=== PATIENT | female | born 1975 | race Caucasian/White ===

== ENCOUNTER 2016-10-06 14:48 | Emergency (ER) | payer OTHER ==
[2016-10-06 14:54] VITALS: BP 117/53; PULSE 96; TEMP 98; BMI 32.9
--- NOTE | 2016-10-06 15:39 | PDOC ---
History of Present Illness - General Chief Complaint: Sore Throat Stated Complaint: SORE THROAT Time Seen by Provider: 10/06/16 15:03 - History of Present Illness Initial Comments: 10/06/16 15:35 CHIEF COMPLAINT: sore throat, cough, sneezing, body aches HISTORY OF PRESENT ILLNESS: 41 yo F with no PMH presents to fast track with sore throat x 2 days, accompanied by cough, sneezing, body aches. Patient reports pain when swallowing and subjective fever. Denies chills, nausea, vomiting, diarrhea. No recent travel or sick contacts. PAST MEDICAL HISTORY: Denies past medical history FAMILY HISTORY: Denies SOCIAL HISTORY: Denies tobacco, alcohol, illicit drug use. SURGICAL HISTORY: left ankle surgery ALLERGIES: No known drug allergies REVIEW OF SYSTEMS General/Constitutional: Subjective fevr. Denies weakness, weight change. HEENT: Denies change in vision. Denies ear pain or discharge. Denies sore throat. Cardiovascular: Denies chest pain or shortness of breath. Respiratory: Denies cough, wheezing, or hemoptysis. Gastrointestinal: Denies nausea, vomiting, diarrhea or constipation. Denies rectal bleeding. Skin: Denies rash. PHYSICAL EXAM General Appearance: Well-appearing, appropriately dressed. No apparent distress. HEENT: Rhinorrhea, post nasal drip to oropharynx. EOMI, PERRLA, normal ENT inspection, normal voice. No conjunctival pallor. No photophobia, scleral icterus. Respiratory/Chest: Lungs CTAB. Cardiovascular: RRR. S1, S2. Musculoskeletal/Extremities: Normal inspection. FROM of all extremities, normal capillary refill. No tenderness to extremities, pedal edema, swelling, erythema or deformity. Integumentary: Appropriate color, dry, warm. 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 Fully oriented, alert. Appropriate mood/affect. Motor strength 5/5. No appreciable EOM palsy, facial droop or sensory deficit. Past History - Past Medical History Allergies/Adverse Reactions: Allergies Allergy/AdvReac Type Severity Reaction Status Date / Time No Known Allergies Allergy Verified 08/18/15 07:58 Home Medications: Ambulatory Orders Bupropion HCl [Wellbutrin Xl -] 150 mg PO DAILY tab.sr.24h 07/29/15 Enoxaparin [Lovenox -] 30 mg SQ BID disp.syrin 07/29/15 Alprazolam [Xanax] 0.25 mg PO PRN PRN 08/18/15 Cyclobenzaprine HCl [Flexeril -] 10 mg PO HS #3 tablet MDD 1 08/18/15 Oxycodone HCl/Acetaminophen [Percocet 5/325 -] 1 - 2 tab PO Q4H #20 tablet MDD unknown 08/18/15 Ibuprofen [Motrin -] 600 mg PO TID PRN #21 tablet 10/06/16 Loratadine [Claritin -] 10 mg PO DAILY #30 tablet 10/06/16 Anemia: No Asthma: No Cancer: No Cardiac Disorders: No CVA: No COPD: No CHF: No Dementia: No Diabetes: No GI Disorders: No Disorders: No HTN: No Hypercholesterolemia: No Liver Disease: No Seizures: No Thyroid Disease: No Other medical history: denies - Surgical History Abdominal Surgery: No Appendectomy: No Cardiac Surgery: No Cholecystectomy: No Lung Surgery: No Neurologic Surgery: No Orthopedic Surgery: 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 (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 LEFT 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 07/23/15) - Immunization History Immunization Up to Date: Yes - Psycho/Social/Smoking Cessation Hx Anxiety: No Suicidal Ideation: No Smoking Status: Yes Smoking History: Never smoked Have you smoked in the past 12 months: Yes Number of Cigarettes Smoked Daily: 5 If you are a former smoker, when did you quit?: 07/02 Information on smoking cessation initiated: No 'Breaking Loose' booklet given: 07/23/15 Hx Alcohol Use: No Drug/Substance Use Hx: No Substance Use Type: None Hx Substance Use Treatment: No *Physical Exam - Vital Signs Last Vital Signs Temp Pulse Resp BP Pulse Ox 98 F 96 H 18 117/53 97 10/06/16 14:53 10/06/16 14:53 10/06/16 14:53 10/06/16 14:53 10/06/16 14:53 Medical Decision Making - Medical Decision Making 10/06/16 15:38 41 yo F with no PMH presents to ED with URI symptoms and subjective fever, body aches. -Strep, flu swabs -strep,flu negative -Motrin 600 mg TID PRN Advised patient to take medications as prescribed and f/u with PMd if symptoms persist. Advised patient of signs and symptoms for return to ER; patient verbalized understanding and agrees to plan. 10/06/16 16:06 *DC/Admit/Observation/Transfer Diagnosis at time of Disposition: Common cold - Discharge Dispostion Disposition: HOME Condition at time of disposition: Stable Admit: No - Prescriptions Prescriptions: Loratadine [Claritin -] 10 mg PO DAILY #30 tablet Ibuprofen [Motrin -] 600 mg PO TID PRN #21 tablet PRN Reason: Fever Or Pain - Referrals Referrals: Sully Simpson [Primary Care Provider] - - Patient Instructions Printed Discharge Instructions: DI for Common Cold Additional Instructions: Please take medication as prescribed and f/u with your primary care doctor if symptoms persist past 3-5 days. If you experience any fever that does not go away with Motrin, nausea, vomiting, diarrhea, or any new or worsening symptoms, please return to the ER.
== END 2016-10-06 16:33 | disposition home or self-care (01) ==
LOC: JERFT 14:48
DX: J00 Acute nasopharyngitis [common cold] (principal)
CPT/HCPCS: 87070; 87430; 87804; 99281-25

== ENCOUNTER 2022-01-10 16:03 | Emergency (ER) | payer OTHER ==
[2022-01-10 16:39] VITALS: BP 115/81; PULSE 99; RESP 18; TEMP 98.1; BMI 36.6
== END 2022-01-10 20:30 | disposition home or self-care (01) ==
LOC: JER 16:03
DX: R20.2 Paresthesia of skin (principal)
CPT/HCPCS: 70450-TC; 99284-25